=== PATIENT | male | born 1975 | race Caucasian/White ===

== ENCOUNTER → 2025-02-12 09:11 | Outpatient (REF) | payer BC, SELFPAY | LOC: RCS 09:11 | PROVIDERS: ATTENDING PHYSICIAN Nuclear Medicine Nuclear Cardiology; FAMILY PHYSICIAN Family Medicine | DX: I48.0 Paroxysmal atrial fibrillation (principal); R55 Syncope and collapse; R00.2 Palpitations | CPT/HCPCS: 93306 ==

== ENCOUNTER → 2025-02-19 13:33 | Outpatient (REF) | payer BC, SELFPAY | LOC: RCS 13:33 | PROVIDERS: ATTENDING PHYSICIAN Nuclear Medicine Nuclear Cardiology; FAMILY PHYSICIAN Family Medicine | DX: I48.0 Paroxysmal atrial fibrillation (principal); R55 Syncope and collapse; R00.2 Palpitations | CPT/HCPCS: 93017; 93350 ==

== ENCOUNTER 2025-03-15 06:10 | Day surgery (SDC) | payer BC, SELFPAY | END 2025-03-15 10:13 | disposition home or self-care (01) | LOC: GI 06:10 | PROVIDERS: ATTENDING PHYSICIAN Internal Medicine Gastroenterology; FAMILY PHYSICIAN Family Medicine | DX: Z12.11 Encounter for screening for malignant neoplasm of colon (principal); K64.8 Other hemorrhoids; D12.2 Benign neoplasm of ascending colon | CPT/HCPCS: 45380; 88305 ==